=== PATIENT | male | born 1960 | race African-American/Black ===

== ENCOUNTER 2017-05-03 12:13 | Observation (INO) | payer OTHER ==
[~2017-05-03] VITALS: Ht 175.3 cm; Wt 89.2 kg
[2017-05-03] MEDS ORDERED: IPRATRPIUM/ALBUTEROL 0.5/2.5MG 3 ML NEBU. NEB ONE (12:30)
--- NOTE | 2017-05-03 12:37 | EKG ---
[facility] [address] [place] [address] Test Date: 2017-05-03 Test Time: 12:20:17 Pat Name: ROSA PIERCE Department: Room: Gender: M [employer]el [employer] Machine: : [id number] Requested By: DAHLIA ALCARAZ Order Number: [id number] Reading MD: Measurements Intervals [place] Rate: 67 P: 54 WY: 162 QRS: -12 QRSD: 84 T: 24 QT: 352 QTc: 374 Interpretive Statements SINUS RHYTHM LEFTWARD AXIS OTHERWISE NORMAL ECG RI6.01 Unconfirmed report No previous ECG available for comparison
[2017-05-03] MEDS ORDERED: ASPIRIN 325 MG TABLET PO ONE (12:45)
--- NOTE | 2017-05-03 12:47 | PHYS DOC ---
Past Medical History Past Medical History: Arthritis, Diabetes-Type II, Hypertension Past Surgical History: Other Additional Past Surgical Histo: X 3 HEARNIA REPAIR Alcohol Use: Rarely Drug Use: None Adult General Chief Complaint Chief Complaint: SHORTNESS OF BREATH HPI HPI 56-year-old male with a history of hypertension, diabetes, and family history of heart disease presenting to the emergency department today with shortness of breath. He reports this started about 3 hours ago which woke him up from sleep. He also reports having nausea and sweatiness of the skin. He reports having a family history of blood clots as well. He denies unilateral leg swelling hemoptysis or recent immobilization or surgery. Wells low risk. He did vomit a few times that she describes as nonbloody and nonbilious. Review of systems is negative for chest pain or any pain in his shoulders or neck. He denies a headache vision changes numbness weakness or tingling. He denies abdominal pain. All other review of systems is negative unless otherwise noted in history of present illness. ED course: 56-year-old male presenting to the emergency department today with shortness of breath. Pt denies any pain in the chest or shoulders or neck. Triage vital signs afebrile with normal heart rate. Patient is not tachypneic. Pertinent physical examination findings show normal lung sounds bilaterally. Patient is well-appearing with a normal heart rate. Abdomen is soft and nontender palpation. Otherwise no evidence of unilateral leg swelling. Palpable pulses in all extremities. EKG obtained and reviewed by myself which shows sinus rhythm with a regular rate. Mildly leftward axis. ST segments are congruent. Intervals within normal limits. Nonspecific T-wave flattening in lead 3. Chest x-ray obtained and reviewed by myself. Shows no obvious acute cardiopulmonary signs. Heart score 5. neg dimer and wells low risk. Given patient's heart score, patient was admitted for serial troponins and cardiac consultation. Review of Systems Review of Systems SEE ABOVE. Current Medications Current Medications Current Medications Medications (Trade) Dose Ordered Sig/Lyudmila Start Time Stop Time Status Last Admin Dose Admin Albuterol/ Ipratropium (Duoneb) 3 ml 1X ONCE 05/03/17 12:30 05/03/17 12:34 DC 05/03/17 12:44 3 ML Aspirin (Fahad Aspirin) 325 mg 1X ONCE 05/03/17 12:45 05/03/17 12:46 DC 05/03/17 13:20 325 MG Morphine Sulfate 2 mg PRN Q2HR PRN 05/03/17 14:00 05/04/17 13:59 Nitroglycerin (Nitrostat) 0.4 mg PRN Q5MIN PRN 05/03/17 14:00 05/04/17 13:59 Ondansetron HCl (Zofran) 4 mg PRN Q8HRS PRN 05/03/17 14:00 05/04/17 13:59 Allergies Allergies Allergies Coded Allergies Type Severity Reaction Last Updated Verified No Known Drug Allergies 05/03/17 No Physical Exam Physical Exam SEE ABOVE Constitutional: Well developed, well nourished, no acute distress, non-toxic appearance. HENT: Normocephalic, atraumatic, bilateral external ears normal, oropharynx moist, no oral exudates, nose normal. [] Eyes: PERRLA, EOMI, conjunctiva normal, no discharge. [] Neck: Normal range of motion, no tenderness, supple, no stridor. Cardiovascular:Heart rate regular rhythm, no murmur [] Lungs & Thorax: Bilateral breath sounds clear to auscultation Abdomen: Bowel sounds normal, soft, no tenderness, no masses, no pulsatile masses. [] Skin: Warm, dry, no erythema, no rash. Back: No tenderness, no CVA tenderness. Extremities: No tenderness, no cyanosis, no clubbing, ROM intact, no edema. [] Neurologic: Alert and oriented X 3, normal motor function, normal sensory function, no focal deficits noted. [] Psychologic: Affect normal, judgement normal, mood normal. [] Current Patient Data Vital Signs Vital Signs Date Time Temp Pulse Resp B/P (MAP) Pulse Ox O2 Delivery O2 Flow Rate FiO2 05/03/17 12:48 99 Room Air 05/03/17 12:26 97.7 63 18 183/97 (125) 97.7 Lab Values Laboratory Tests Test 05/03/17 12:22 05/03/17 12:40 Glucose (Fingerstick) 125 mg/dL (70-99) H White Blood Count 9.1 x10^3/uL (4.0-11.0) Red Blood Count 5.54 x10^6/uL (4.30-5.70) Hemoglobin 15.0 g/dL (13.0-17.5) Hematocrit 44.8 % (39.0-53.0) Mean Corpuscular Volume 81 fL (79-100) Mean Corpuscular Hemoglobin 27 pg (25-35) Mean Corpuscular Hemoglobin Concent 34 g/dL (31-37) Red Cell Distribution Width 16.0 % (11.5-14.5) H Platelet Count 234 x10^3/uL (140-400) Neutrophils (%) (Auto) 62 % (31-73) Lymphocytes (%) (Auto) 30 % (24-48) Monocytes (%) (Auto) 6 % (0-9) Eosinophils (%) (Auto) 1 % (0-3) Basophils (%) (Auto) 1 % (0-3) Neutrophils # (Auto) 5.6 x10^3uL (1.8-7.7) Lymphocytes # (Auto) 2.7 x10^3/uL (1.0-4.8) Monocytes # (Auto) 0.6 x10^3/uL (0.0-1.1) Eosinophils # (Auto) 0.1 x10^3/uL (0.0-0.7) Basophils # (Auto) 0.1 x10^3/uL (0.0-0.2) D-Dimer (Isa) 0.34 ug/mlFEU (0.00-0.50) Sodium Level 141 mmol/L (136-145) Potassium Level 5.3 mmol/L (3.5-5.1) H Chloride Level 103 mmol/L (98-107) Carbon Dioxide Level 32 mmol/L (21-32) Anion Gap 6 (6-14) Blood Urea Nitrogen 12 mg/dL (8-26) Creatinine 1.1 mg/dL (0.7-1.3) Estimated GFR (Cockcroft-Gault) 69.2 Glucose Level 133 mg/dL (70-99) H Calcium Level 9.2 mg/dL (8.5-10.1) Total Bilirubin 0.3 mg/dL (0.2-1.0) Direct Bilirubin < 0.1 mg/dL (0.0-0.2) Aspartate Amino Transferase (AST) 17 U/L (15-37) Alanine Aminotransferase (ALT) 26 U/L (16-63) Alkaline Phosphatase 68 U/L (46-116) Troponin I Quantitative < 0.017 ng/mL (0.000-0.055) UV-Bmd-B-Type Natriuretic Peptide 22 pg/mL (0-124) Total Protein 7.8 g/dL (6.4-8.2) Albumin 3.9 g/dL (3.4-5.0) Lipase 524 U/L (73-393) H Laboratory Tests 05/03/17 12:40 Laboratory Tests 05/03/17 12:40 EKG EKG [] Radiology/Procedures Radiology/Procedures [] Course & Med Decision Making Course & Med Decision Making Pertinent Labs and Imaging studies reviewed. (See chart for details) [] Dragon Disclaimer Dragon Disclaimer This electronic medical record was generated, in whole or in part, using a voice recognition dictation system. Departure Departure Impression: Primary Impression: Shortness of breath Disposition: ADMITTED INPATIENT Admitting Physician: Crystal Candelaria Condition: STABLE DAHLIA ALCARAZ MD May 03, 2017 12:47
[2017-05-03 12:52] LABS: BASO # 0.1 x10^3/uL (0.0-0.2); BASO % 1 % (0-3); EOS % 1 % (0-3); HEMATOCRIT 44.8 % (39.0-53.0); LYMPH # 2.7 x10^3/uL (1.0-4.8); LYMPH % 30 % (24-48); MEAN CORPUSCULAR HEMOGLOBIN 27 pg (25-35); MEAN CORPUSCULAR HGB CONC 34 g/dL (31-37); MEAN CORPUSCULAR VOLUME 81 fL (79-100); MONO % 6 % (0-9); NEUT % 62 % (31-73); PLATELET COUNT 234 x10^3/uL (140-400); RED BLOOD COUNT 5.54 x10^6/uL (4.30-5.70); WHITE BLOOD COUNT 9.1 x10^3/uL (4.0-11.0)
[2017-05-03 13:01] LABS: ANION GAP 6 (6-14); BLOOD UREA NITROGEN 12 mg/dL (8-26); CALCIUM 9.2 mg/dL (8.5-10.1); CARBON DIOXIDE 32 mmol/L (21-32); CHLORIDE 103 mmol/L (98-107); CREATININE 1.1 mg/dL (0.7-1.3); GFR 69.2; GLUCOSE 133 mg/dL (70-99); SODIUM 141 mmol/L (136-145)
[2017-05-03 13:07] LABS: ALBUMIN 3.9 g/dL (3.4-5.0); ALK PHOS 68 U/L (46-116); ALT (SGPT) 26 U/L (16-63); AST (SGOT) 17 U/L (15-37); DIRECT BILIRUBIN < 0.1 mg/dL (0.0-0.2); TOTAL BILIRUBIN 0.3 mg/dL (0.2-1.0); TOTAL PROTEIN 7.8 g/dL (6.4-8.2)
[2017-05-03 13:09] LABS: POTASSIUM 5.3 mmol/L (3.5-5.1)
--- NOTE | 2017-05-03 13:14 | RAD ---
AP portable chest radiograph 05/03/2017 Clinical History: Shortness of breath with chest tightness since this morning. An AP portable erect digital radiograph of the chest was obtained. No previous studies are available for comparison. The cardiac silhouette is borderline enlarged. The thoracic aorta is tortuous. Calcified left hilar and mediastinal lymph nodes are seen. No acute pulmonary infiltrate is noted. No pneumothorax or pleural effusion is seen. Degenerative changes are seen involving the thoracic spine. Impression: No acute abnormality is seen.
[2017-05-03] MEDS ORDERED: MORPHINE SULFATE 2 MG/ML DISP.SYRIN. IV PRN (14:00)
[2017-05-03] MEDS ORDERED: NITROGLYCERIN SUBLINGUAL 0.4 MG BOTTLE OF 25. SL PRN (14:00)
[2017-05-03] MEDS ORDERED: ONDANSETRON PF 4 MG/2 ML VIAL. IV PRN (14:00)
[2017-05-03 14:50] VITALS: BP 138/81
[2017-05-03] MEDS ORDERED: TRAM50TA PO (15:30)
[2017-05-03] MEDS ORDERED: IBUP1TAB12 PO (15:30)
[2017-05-03] MEDS ORDERED: MELO7.5T29 PO (15:30)
[2017-05-03] MEDS ORDERED: LOSA50TA6 PO (15:30)
[2017-05-03] MEDS ORDERED: METF500T4 PO (15:30)
[2017-05-03] MEDS ORDERED: AMLO5TAB2 PO (15:30)
[2017-05-03] MEDS ORDERED: IBUP-1007 PO (15:30)
--- NOTE | 2017-05-03 15:59 | PDOC1 ---
History and Physical Date of Admission Date of Admission DATE: 05/03/17 TIME: 15:47 Source Source: Chart review, Patient History of Present Illness History of Present Illness MR. Poole is a 56-year-old male with admit with new and acute shortness of breath. He reports this started this AM woke him up from sleep. He reports sweats and chills, nausea and he vomited X3 no change in stool, no diarrhea. No fever, but + sweats and dyspnea. He feels improved now, and never had any pain. 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 Ramires, recent physical and labs, OK he has chronic right shoulder pain, has had 2 injections by physiatry for bursitis right shoulder, and takes Nsaids and tramadol Past Medical History Past Medical History a history of hypertension, diabetes, Family History Family History He reports having a family history of blood clots Social History Smoke: <1 pack per day ALCOHOL: rare Drugs: None Current Problem List Problem List Problems Medical Problems: (1) Shortness of breath Status: Acute Problems: Current Medications Current Medications Current Medications Albuterol/ Ipratropium (Duoneb) 3 ml 1X ONCE NEB Last administered on 12:44; Start 05/03/17 at 12:30; Stop 05/03/17 at 12:34; Status DC Aspirin (Fahad Aspirin) 325 mg 1X ONCE PO Last administered on 05/03/17t 13: 20; Start 05/03/17 at 12:45; Stop 05/03/17 at 12:46; Status DC Ondansetron HCl (Zofran) 4 mg PRN Q8HRS PRN IV NAUSEA/VOMITING; Start at 14:00; Stop 05/04/17 at 13:59 Morphine Sulfate 2 mg PRN Q2HR PRN IV PAIN; Start 05/03/17 at 14:00; Stop at 13:59 Nitroglycerin (Nitrostat) 0.4 mg PRN Q5MIN PRN SL CHEST PAIN; Start 05/03/17 at 14:00; Stop 05/04/17 at 13:59 Active Scripts Active Reported Meloxicam 7.5 Mg Tablet 1 Tab PO BID Advil Pm Caplet (Ibuprofen/Diphenhydramine Cit) 1 Each Tablet 1 Each PO HS Ibuprofen 600 Mg Tablet 600 Mg PO QID Tramadol Hcl 50 Mg Tablet 1-2 Tab PO QID Metformin Hcl 500 Mg Tablet 500 Mg PO BIDWMEALS Amlodipine Besylate 5 Mg Tablet 5 Mg PO DAILY Losartan Potassium 50 Mg Tablet 50 Mg PO DAILY Allergies Allergies: Coded Allergies: No Known Drug Allergies (Unverified , 05/03/17) ROS Review of System Review of systems is negative for chest pain or any pain in his shoulders or neck. He denies a headache vision changes numbness weakness or tingling. He denies abdominal pain. All other review of systems is negative unless otherwise noted in history of present illness. Physical Exam General: Alert, Cooperative HEENT: Atraumatic, PERRLA Abdomen: Normal bowel sounds, Soft Extremities: No clubbing, No edema, Normal pulses Skin: No rashes, No breakdown Neuro: Normal speech, Normal tone, Cranial nerves 3-12 NL Psych/Mental Status: Mood NL Vitals Vitals Vital Signs Date Time Temp Pulse Resp B/P (MAP) Pulse Ox O2 Delivery O2 Flow Rate FiO2 05/03/17 14:50 98.2 65 18 138/81 (100) 100 Room Air 98.2 Labs Labs Laboratory Tests Test 05/03/17 12:22 05/03/17 12:40 Glucose (Fingerstick) 125 mg/dL (70-99) White Blood Count 9.1 x10^3/uL (4.0-11.0) Red Blood Count 5.54 x10^6/uL (4.30-5.70) Hemoglobin 15.0 g/dL (13.0-17.5) Hematocrit 44.8 % (39.0-53.0) Mean Corpuscular Volume 81 fL (79-100) Mean Corpuscular Hemoglobin 27 pg (25-35) Mean Corpuscular Hemoglobin Concent 34 g/dL (31-37) Red Cell Distribution Width 16.0 % (11.5-14.5) Platelet Count 234 x10^3/uL (140-400) Neutrophils (%) (Auto) 62 % (31-73) Lymphocytes (%) (Auto) 30 % (24-48) Monocytes (%) (Auto) 6 % (0-9) Eosinophils (%) (Auto) 1 % (0-3) Basophils (%) (Auto) 1 % (0-3) Neutrophils # (Auto) 5.6 x10^3uL (1.8-7.7) Lymphocytes # (Auto) 2.7 x10^3/uL (1.0-4.8) Monocytes # (Auto) 0.6 x10^3/uL (0.0-1.1) Eosinophils # (Auto) 0.1 x10^3/uL (0.0-0.7) Basophils # (Auto) 0.1 x10^3/uL (0.0-0.2) D-Dimer (Isa) 0.34 ug/mlFEU (0.00-0.50) Sodium Level 141 mmol/L (136-145) Potassium Level 5.3 mmol/L (3.5-5.1) Chloride Level 103 mmol/L (98-107) Carbon Dioxide Level 32 mmol/L (21-32) Anion Gap 6 (6-14) Blood Urea Nitrogen 12 mg/dL (8-26) Creatinine 1.1 mg/dL (0.7-1.3) Estimated GFR (Cockcroft-Gault) 69.2 Glucose Level 133 mg/dL (70-99) Calcium Level 9.2 mg/dL (8.5-10.1) Total Bilirubin 0.3 mg/dL (0.2-1.0) Direct Bilirubin < 0.1 mg/dL (0.0-0.2) Aspartate Amino Transf (AST/SGOT) 17 U/L (15-37) Alanine Aminotransferase (ALT/SGPT) 26 U/L (16-63) Alkaline Phosphatase 68 U/L (46-116) Troponin I Quantitative < 0.017 ng/mL (0.000-0.055) OQ-Nah-S-Type Natriuretic Peptide 22 pg/mL (0-124) Total Protein 7.8 g/dL (6.4-8.2) Albumin 3.9 g/dL (3.4-5.0) Lipase 524 U/L (73-393) Laboratory Tests Test 05/03/17 12:22 05/03/17 12:40 Glucose (Fingerstick) 125 mg/dL (70-99) White Blood Count 9.1 x10^3/uL (4.0-11.0) Red Blood Count 5.54 x10^6/uL (4.30-5.70) Hemoglobin 15.0 g/dL (13.0-17.5) Hematocrit 44.8 % (39.0-53.0) Mean Corpuscular Volume 81 fL (79-100) Mean Corpuscular Hemoglobin 27 pg (25-35) Mean Corpuscular Hemoglobin Concent 34 g/dL (31-37) Red Cell Distribution Width 16.0 % (11.5-14.5) Platelet Count 234 x10^3/uL (140-400) Neutrophils (%) (Auto) 62 % (31-73) Lymphocytes (%) (Auto) 30 % (24-48) Monocytes (%) (Auto) 6 % (0-9) Eosinophils (%) (Auto) 1 % (0-3) Basophils (%) (Auto) 1 % (0-3) Neutrophils # (Auto) 5.6 x10^3uL (1.8-7.7) Lymphocytes # (Auto) 2.7 x10^3/uL (1.0-4.8) Monocytes # (Auto) 0.6 x10^3/uL (0.0-1.1) Eosinophils # (Auto) 0.1 x10^3/uL (0.0-0.7) Basophils # (Auto) 0.1 x10^3/uL (0.0-0.2) D-Dimer (Isa) 0.34 ug/mlFEU (0.00-0.50) Sodium Level 141 mmol/L (136-145) Potassium Level 5.3 mmol/L (3.5-5.1) Chloride Level 103 mmol/L (98-107) Carbon Dioxide Level 32 mmol/L (21-32) Anion Gap 6 (6-14) Blood Urea Nitrogen 12 mg/dL (8-26) Creatinine 1.1 mg/dL (0.7-1.3) Estimated GFR (Cockcroft-Gault) 69.2 Glucose Level 133 mg/dL (70-99) Calcium Level 9.2 mg/dL (8.5-10.1) Total Bilirubin 0.3 mg/dL (0.2-1.0) Direct Bilirubin < 0.1 mg/dL (0.0-0.2) Aspartate Amino Transf (AST/SGOT) 17 U/L (15-37) Alanine Aminotransferase (ALT/SGPT) 26 U/L (16-63) Alkaline Phosphatase 68 U/L (46-116) Troponin I Quantitative < 0.017 ng/mL (0.000-0.055) QW-Ghk-Y-Type Natriuretic Peptide 22 pg/mL (0-124) Total Protein 7.8 g/dL (6.4-8.2) Albumin 3.9 g/dL (3.4-5.0) Lipase 524 U/L (73-393) VTE Prophylaxis Ordered VTE Prophylaxis Devices: No VTE Pharmacological Prophylaxi: Yes Assessment/Plan Assessment/Plan lipase elevated, acute pancreatitis, nausea with vomiting, acute chest symptoms without pain, angina equivalent per ER, r/o ACS started acute dyspnea and shortness of breath w/o asthma Left axis on EKG, check echo, htn, dm2 tobaccoism, cessation recommended OMI BRIDGES MD May 03, 2017 15:59
[2017-05-03] MEDS: traMADol 50 MG TABLET PO SCH ×2 (16:41→22:21)
[2017-05-03 19:25] VITALS: BP 143/85
[2017-05-03] MEDS ORDERED: diphenhydrAMINE HCL 25 MG CAPSULE PO PRN (20:30)
[2017-05-03] MEDS ORDERED: DEXTROSE 50% 25 GM / 50ML DISP.SYRIN. IV PRN (20:30)
[2017-05-03] MEDS ORDERED: ZOLPIDEM 5 MG TABLET. PO PRN (20:30)
[2017-05-03 23:00] VITALS: BP 118/92
[2017-05-04 03:00] VITALS: BP 128/89
[2017-05-04 05:22] LABS: BASO % 1 % (0-3); EOS % 1 % (0-3); HEMATOCRIT 42.2 % (39.0-53.0); HEMOGLOBIN 13.9 g/dL (13.0-17.5); LYMPH # 2.8 x10^3/uL (1.0-4.8); LYMPH % 37 % (24-48); MEAN CORPUSCULAR HEMOGLOBIN 27 pg (25-35); MEAN CORPUSCULAR HGB CONC 33 g/dL (31-37); MEAN CORPUSCULAR VOLUME 81 fL (79-100); MONO % 7 % (0-9); NEUT % 55 % (31-73); PLATELET COUNT 219 x10^3/uL (140-400); RED BLOOD COUNT 5.22 x10^6/uL (4.30-5.70); RED CELL DISTRIBUTION WIDTH 16.1 % (11.5-14.5); WHITE BLOOD COUNT 7.5 x10^3/uL (4.0-11.0)
[2017-05-04 06:16] LABS: ALBUMIN 3.3 g/dL (3.4-5.0); ALBUMIN/GLOBULIN RATIO 0.8 (1.0-1.7); CALCIUM 8.4 mg/dL (8.5-10.1); GFR 93.5; TOTAL BILIRUBIN 0.5 mg/dL (0.2-1.0); TOTAL PROTEIN 7.3 g/dL (6.4-8.2)
[2017-05-04 06:20] LABS: CHOLESTEROL/HDL RATIO 4.4
[2017-05-04 07:00] VITALS: BP 141/88
[2017-05-04] MEDS: INSULIN ASPART 300 UNITS/3 ML INSULN.PEN SQ SCH ×2 (08:00→12:00)
[2017-05-04] MEDS: traMADol 50 MG TABLET PO SCH ×2 (08:19→15:38)
[2017-05-04] MEDS ORDERED: amLODIPine BESYLATE 5 MG TABLET PO SCH (09:00)
[2017-05-04] MEDS ORDERED: LOSARTAN POTASSIUM 50 MG TABLET. PO SCH (09:00)
--- NOTE | 2017-05-04 10:01 | PDOC2 ---
DENIA DAVENPORT PIPE CAULKER 05/04/17 1001: CARDIAC CONSULT DATE OF CONSULT Date of Consult DATE: 05/04/17 TIME: 09:44 REASON FOR CONSULT Reason for Consult: CP MARYBETH REFERRING PHYSICIAN Referring Physician: Nii SOURCE Source: Chart review, Patient HISTORY OF PRESENT ILLNESS HISTORY OF PRESENT ILLNESS This is a pleasant 56 yo male admitted for complains of chest pain. Reports exertional SOA and chest pressure and nausea. This actually woke him up from sleep. He is positive for high dose chronic NSAID use and significant for shoulder bursitis. Denies any prior CAD, VTE, falls or any recent injury. PAST MEDICAL HISTORY Cardiovascular: HTN Pulmonary: No pertinent hx CENTRAL NERVOUS SYSTEM: Other (No pertinent history) GI: No pertinent hx Heme/Onc: No pertinent hx Hepatobiliary: No pertinent hx Psych: No pertinent hx Musculoskeletal: Osteoarthritis, Other (shoulder bursitis) Rheumatologic: No pertinent hx Infectious disease: No pertinent hx ENT: No pertinent hx Renal/: No pertinent hx Endocrine: Diabetes (pre) Dermatology: No pertinent hx PAST SURGICAL HISTORY Past Surgical History: Hernia Repair (x1 left inguinal and x2 right inguinal with mesh) FAMILY HISTORY Family History: Coronary Artery Disease (brother) SOCIAL HISTORY Smoke: <1 pack per day ALCOHOL: none Drugs: None Lives: with Family CURRENT MEDICATIONS CURRENT MEDICATIONS Current Medications Medications (Trade) Dose Ordered Sig/Lyudmila Route PRN Reason Start Time Stop Time Status Last Admin Dose Admin Albuterol/ Ipratropium (Duoneb) 3 ml 1X ONCE NEB 05/03/17 12:30 05/03/17 12:34 DC 05/03/17 12:44 Aspirin (Fahad Aspirin) 325 mg 1X ONCE PO 05/03/17 12:45 05/03/17 12:46 DC 05/03/17 13:20 Tramadol HCl (Ultram) 50 mg QID PO 05/03/17 17:00 05/04/17 08:19 Diphenhydramine HCl (Benadryl) 25 mg PRN Q6HRS PRN PO ITCHING 05/03/17 20:30 05/03/17 22:21 ALLERGIES ALLERGIES: Coded Allergies: No Known Drug Allergies (Unverified , 05/03/17) ROS Review of System 14 point ROS evaluated with pertinent positives noted per HPI PHYSICAL EXAM General: Alert, Oriented X3, Cooperative, No acute distress HEENT: Atraumatic, Mucous membr. moist/pink Lungs: Clear to auscultation, Normal air movement Heart: Regular rate (SR), Normal S1, Normal S2, No murmurs Abdomen: Soft, No tenderness Extremities: No cyanosis, No edema Skin: No breakdown, No significant lesion Neuro: Normal speech, Sensation intact Psych/Mental Status: Mental status NL, Mood NL MUSCULOSKELETAL: Osteoarthritic changes both hands VITALS VITALS Vital Signs Date Time Temp Pulse Resp B/P (MAP) Pulse Ox O2 Delivery O2 Flow Rate FiO2 05/04/17 08:25 Room Air 05/04/17 08:19 99 05/04/17 07:00 98.1 64 18 141/88 (105) 98.1 LABS Lab: Laboratory Tests Test 05/03/17 12:22 05/03/17 12:40 05/03/17 20:20 05/03/17 20:39 Glucose (Fingerstick) 125 mg/dL (70-99) 152 mg/dL (70-99) White Blood Count 9.1 x10^3/uL (4.0-11.0) Red Blood Count 5.54 x10^6/uL (4.30-5.70) Hemoglobin 15.0 g/dL (13.0-17.5) Hematocrit 44.8 % (39.0-53.0) Mean Corpuscular Volume 81 fL (79-100) Mean Corpuscular Hemoglobin 27 pg (25-35) Mean Corpuscular Hemoglobin Concent 34 g/dL (31-37) Red Cell Distribution Width 16.0 % (11.5-14.5) Platelet Count 234 x10^3/uL (140-400) Neutrophils (%) (Auto) 62 % (31-73) Lymphocytes (%) (Auto) 30 % (24-48) Monocytes (%) (Auto) 6 % (0-9) Eosinophils (%) (Auto) 1 % (0-3) Basophils (%) (Auto) 1 % (0-3) Neutrophils # (Auto) 5.6 x10^3uL (1.8-7.7) Lymphocytes # (Auto) 2.7 x10^3/uL (1.0-4.8) Monocytes # (Auto) 0.6 x10^3/uL (0.0-1.1) Eosinophils # (Auto) 0.1 x10^3/uL (0.0-0.7) Basophils # (Auto) 0.1 x10^3/uL (0.0-0.2) D-Dimer (Isa) 0.34 ug/mlFEU (0.00-0.50) Sodium Level 141 mmol/L (136-145) Potassium Level 5.3 mmol/L (3.5-5.1) Chloride Level 103 mmol/L (98-107) Carbon Dioxide Level 32 mmol/L (21-32) Anion Gap 6 (6-14) Blood Urea Nitrogen 12 mg/dL (8-26) Creatinine 1.1 mg/dL (0.7-1.3) Estimated GFR (Cockcroft-Gault) 69.2 Glucose Level 133 mg/dL (70-99) Calcium Level 9.2 mg/dL (8.5-10.1) Total Bilirubin 0.3 mg/dL (0.2-1.0) Direct Bilirubin < 0.1 mg/dL (0.0-0.2) Aspartate Amino Transf (AST/SGOT) 17 U/L (15-37) Alanine Aminotransferase (ALT/SGPT) 26 U/L (16-63) Alkaline Phosphatase 68 U/L (46-116) Troponin I Quantitative < 0.017 ng/mL (0.000-0.055) < 0.017 ng/mL (0.000-0.055) TW-Wcs-W-Type Natriuretic Peptide 22 pg/mL (0-124) Total Protein 7.8 g/dL (6.4-8.2) Albumin 3.9 g/dL (3.4-5.0) Lipase 524 U/L (73-393) Test 05/04/17 05:00 05/04/17 07:58 White Blood Count 7.5 x10^3/uL (4.0-11.0) Red Blood Count 5.22 x10^6/uL (4.30-5.70) Hemoglobin 13.9 g/dL (13.0-17.5) Hematocrit 42.2 % (39.0-53.0) Mean Corpuscular Volume 81 fL (79-100) Mean Corpuscular Hemoglobin 27 pg (25-35) Mean Corpuscular Hemoglobin Concent 33 g/dL (31-37) Red Cell Distribution Width 16.1 % (11.5-14.5) Platelet Count 219 x10^3/uL (140-400) Neutrophils (%) (Auto) 55 % (31-73) Lymphocytes (%) (Auto) 37 % (24-48) Monocytes (%) (Auto) 7 % (0-9) Eosinophils (%) (Auto) 1 % (0-3) Basophils (%) (Auto) 1 % (0-3) Neutrophils # (Auto) 4.1 x10^3uL (1.8-7.7) Lymphocytes # (Auto) 2.8 x10^3/uL (1.0-4.8) Monocytes # (Auto) 0.5 x10^3/uL (0.0-1.1) Eosinophils # (Auto) 0.1 x10^3/uL (0.0-0.7) Basophils # (Auto) 0.0 x10^3/uL (0.0-0.2) Sodium Level 138 mmol/L (136-145) Potassium Level 4.0 mmol/L (3.5-5.1) Chloride Level 102 mmol/L (98-107) Carbon Dioxide Level 27 mmol/L (21-32) Anion Gap 9 (6-14) Blood Urea Nitrogen 10 mg/dL (8-26) Creatinine 1.0 mg/dL (0.7-1.3) Estimated GFR (Cockcroft-Gault) 93.5 BUN/Creatinine Ratio 10 (6-20) Glucose Level 111 mg/dL (70-99) Calcium Level 8.4 mg/dL (8.5-10.1) Total Bilirubin 0.5 mg/dL (0.2-1.0) Aspartate Amino Transf (AST/SGOT) 11 U/L (15-37) Alanine Aminotransferase (ALT/SGPT) 22 U/L (16-63) Alkaline Phosphatase 58 U/L (46-116) Troponin I Quantitative < 0.017 ng/mL (0.000-0.055) Total Protein 7.3 g/dL (6.4-8.2) Albumin 3.3 g/dL (3.4-5.0) Albumin/Globulin Ratio 0.8 (1.0-1.7) Triglycerides Level 110 mg/dL (0-150) Cholesterol Level 198 mg/dL (0-200) LDL Cholesterol, Calculated 131 mg/dL (0-100) VLDL Cholesterol, Calculated 22 mg/dL (0-40) Non-HDL Cholesterol Calculated 153 mg/dL (0-129) HDL Cholesterol 45 mg/dL (40-60) Cholesterol/HDL Ratio 4.4 Glucose (Fingerstick) 123 mg/dL (70-99) ASSESSMENT/PLAN ASSESSMENT/PLAN 1. CP: troponin series normal, EKG no acute changes 2. HTN: controlled 3. HLP: unmedicated LDL 131. 4. Right shoulder bursitis: cortisone shot to left shoulder a week ago and right shoulder 2 weeks ago 5. Elevated lipase 6. Chronic NSAID use: about 2400 mg of ibuprofen a day and does not use any H2 latoya or PPI 7. Hyperglycemia: suspecting new DM2. PreDM per pt 8. Tobaccoism 9. Family hx of premature CAD Recommendations 1. Treadmill MPI today 2. PPI. 3. Smoking cessation Problems: MEERA MCDANIEL MD 05/04/17 2000: CARDIAC CONSULT ALLERGIES ALLERGIES: Coded Allergies: No Known Drug Allergies (Unverified , 05/03/17) ASSESSMENT/PLAN ASSESSMENT/PLAN Patient seen and examined. Agree with VIROLOGIST's assessment and plan. CP with atypical features. W[place] ruled out. Treadmill nuclear stress test did not show any ischemia. OK for DC from cardiac standpoint. Thank you for your consultation. Problems: DENIA DAVENPORT APRN May 04, 2017 10:01 MEERA MCDANIEL MD May 04, 2017 20:00
[2017-05-04 11:00] VITALS: BP 122/81
[2017-05-04] MEDS ORDERED: PANT40TA5 PO (11:44)
[2017-05-04 15:00] VITALS: BP 121/79
--- NOTE | 2017-05-04 15:18 | RAD ---
APPROVED REPORT Test Type: Exercise Stress Nurse/Tech: niko pennington Test Indications: dyspnea Cardiac History: HTN, SEE EHR Medications: SEE EHR Medical History: DIABETES, SEE EHR Resting ECG: SR Resting Heart Rate: 74 bpm Resting Blood Pressure: 126/76mmHg Pretest Chest Pain: Typical anginaNo chest pain Nurse/Tech Notes LUNG SOUNDS CLEAR, S1S2 WNL. Consent: The procedure was explained to the patient in lay terms. Informed consent was witnessed. Gilmer eout was entered into [employer]. History and Stress Test performed by RT Keven (R) (N) Stress Symptoms SOA. LEG FATIGUE. PT WAS ABLE TO WALK AT A BRISK WALK AND STILL SPEAK. POST EXERCISE Reason for Termination: Reached target heart rate Target HR: 139 Max HR: 155 bpm 111% of Maximum Predicted HR: 139 bpm Exercise duration: 8:31 min:sec, Stage Exercise capacity: 10METs Max Blood Pressure: 152/84mmHg Blood Pressure response to exercise: Normal blood pressure response during stress. Heart Rate response to exercise: WNL Chest Pain: No. Arrhythmia: No. ST Change: No. INTERPRETATION Stress EKG Conclusion: Baseline EKG showed sinus rhythm. No ischemic changes at peak stress. No arr hythmias. Imaging Protocol IMAGE PROTOCOL: Rest Tc-99m/stress Tc-99m 1 day Rest: Stress: Viability: Radiopharm.Tc99m [id number] Sestamibi Bfcl48gVy 32.3mCi Duration 17min. 12min. Img Date 05/04/2017 05/04/2017 Inj-Img Smsj31evy. 60min. Post-Injection Exercise: 1 minute Rest Admin Site:IV - Left AntecubitalAdministrator:RT Keven (R)(N) Stress Admin Site: IV - Left AntecubitalAdministrator: RT Keven (R)(N) STRESS DATA End Diast. Vol.76.0mlAv. Heart Rate84.0bpm End Syst. Vol.18.0mlCO Index BSA0.0L/min Myocardial Dral483.0gEject. Ktquoyaq45.0% Stress Rates Pk. Fill Rate3.07EDV/secLVtime Pk. Fill 220.25msec Pk. Empty Rate5.70ESV/secLVtime Pk. Eimcv755.75msec 1/3 Pk. Fill1.30EDV/sec Stress Scores Regional WT2.00Summed WT6.00 Regional WM0.00Summed WM0.00 Study quality was good. Left Ventricular size was Normal at Rest and Stress. Lung uptake was Normal. Left Ventricular ejection fraction is 76%. The rest and stress images show normal perfusion, normal contraction and thickening. LV Perf. Quant 17 Seg. SSS0.00 17 Seg. SRS1.00 17 Seg. SDS0.00 Stress Defect Extent (% LAD)0.00Rest Defect Extent (% LAD)0.00Rev. Defect Extent (% LAD)0.00 Stress Defect Extent (% LCX) 0.00Rest Defect Extent (% LCX)0.00Rev. Defect Extent (% LCX)0.00 Stress Defect Extent (% RCA)0.00Rest Defect Extent (% RCA)0.00Rev. Defect Extent (% RCA)0.00 Stress Defect Extent (% JOSE)0.00Rest Defect Extent (% JOSE)0.00Rev. Defect Extent (% JOSE)0.00 Conclusion 1. Treadmill exercise cardioisotope stress test did not show any evidence of ischemia or infarct. 2. Normal left ventricular systolic function with ejection fraction calculated at 76%. 3. Low risk for cardiac events.
[2017-05-04 15:39] VITALS: BP 122/81
--- NOTE | 2017-05-04 17:04 | DS ---
DATE OF DISCHARGE: 05/04/2017 CHIEF COMPLAINT: Chest pain, nausea, vomiting. HOSPITAL COURSE: The patient is a 56-year-old gentleman who presented to the Emergency Room with acute shortness of breath, sweats, fever, chills, nausea and vomiting. He had been admitted for rule out ACS. He had been admitted to the unit for serial enzymes and EKGs, which were normal. He underwent myocardial imaging stress test under Cardiology's guidance. Test was negative. On further questioning, the patient relates that he had been taking increased amounts of NSAIDS for severe shoulder pain bilaterally. Shoulders got injected. Right shoulder is still bothering him some. He is not on any stomach protectant. Pain therefore was attributed to GERD, and he was started on PPI. PHYSICAL EXAM: VS: stable GEN: A&O, NAD CV: RRR PULM: clear ABD: BS+, SNT EXTR: no edema DISCHARGE DIAGNOSIS: Gastroesophageal reflux disease. DISCHARGE DISPOSITION: To home. DISCHARGE CONDITION: Improved. DISCHARGE MEDICATIONS: Please refer to MAR. DISCHARGE INSTRUCTIONS: The patient will follow up with his PCP in 1-2 weeks. RENE NUNEZ MD DR: UR/nts JOB#: [id number] / [id number] HUNTER Coy MD MTDD
--- NOTE | 2017-05-04 19:30 | CARD ---
APPROVED REPORT EXAM: Two-dimensional and M-mode echocardiogram with Doppler and color Doppler. Other Information Quality : Good INDICATION Dyspnea 2D DIMENSIONS RVDd3.2 (2.9-3.5cm)Left Atrium(2D)3.7 (1.6-4.0cm) IVSd1.1 (0.7-1.1cm)Aortic Root(2D)2.6 (2.0-3.7cm) LVDd4.4 (3.9-5.9cm)LVOT Diameter2.1 (1.8-2.4cm) PWd1.1 (0.7-1.1cm)LVDs2.1 (2.5-4.0cm) FS (%) 30.0 %SV73.5 ml LVEF(%)60.0 (>50%) Aortic Valve AoV Peak Benjy.171.1cm/sAoV VTI23.8cm AO Peak GR.11.7mmHgLVOT Peak Benjy.121.0cm/s LVOT VTI 21.47cmAO Mean GR.5mmHg ALEKSANDRA (VMAX)2.70kb0ZTM (VTI)3.18cm2 Mitral Valve MV E Ayciezhg01.4cm/sMV DECEL [id number] MV A Pbcrnuzn75.0cm/sMV [id number] E/A Ratio0.8MVA (PHT)3.25cm2 TDI E/Lateral E'6.4E/Medial E'12.6 Tricuspid Valve TR P. Wyexomxn164ue/sRAP [id number] TR Peak Gr.36rlBsZZNP39orWc Pulmonary Vein S1 Qmnwstvj04.6cm/sD2 Ppasezza14.9cm/s LEFT VENTRICLE The left ventricle is normal size. There is normal left ventricular wall thickness. The left ventricu lar systolic function is normal and the ejection fraction is within normal range. The Ejection Fracti on is 55-60%. There is normal LV segmental wall motion. Transmitral Doppler flow pattern is Grade I-a bnormal relaxation pattern. RIGHT VENTRICLE The right ventricle is normal size. The right ventricular systolic function is normal. ATRIA The left atrium size is normal. The right atrium size is normal. The interatrial septum is intact wit h no evidence for an atrial septal defect or patent foramen ovale as noted on 2-D or Doppler imaging. AORTIC VALVE The aortic valve is normal in structure and function. Doppler and Color Flow revealed trace aortic re gurgitation. There is no significant aortic valvular stenosis. MITRAL VALVE The mitral valve is normal in structure and function. There is no evidence of mitral valve prolapse. There is no mitral valve stenosis. Doppler and Color-flow revealed trace mitral regurgitation. TRICUSPID VALVE The tricuspid valve is normal in structure and function. Doppler and Color Flow revealed trace tricus pid regurgitation. The PA pressure was estimated at 30 mmHg. There is no tricuspid valve stenosis. PULMONIC VALVE The pulmonary valve is normal in structure and function. Doppler and Color Flow revealed trace pulmon ic valvular regurgitation. There is no pulmonic valvular stenosis. GREAT VESSELS The aortic root is normal in size. The ascending aorta is normal in size. The IVC is normal in size a nd collapses >50% with inspiration. PERICARDIAL EFFUSION There is no evidence of significant pericardial effusion. Critical Notification Critical Value: No <Conclusion> The left ventricle is normal size. The left ventricular systolic function is normal and the ejection fraction is within normal range. The Ejection Fraction is 55-60%. There is no significant aortic valvular stenosis. Doppler and Color Flow revealed trace aortic regurgitation. Doppler and Color-flow revealed trace mitral regurgitation. Doppler and Color Flow revealed trace tricuspid regurgitation. The PA pressure was estimated at 30 mmHg.
[2017-05-05] MEDS ORDERED: PANTOPRAZOLE 40 MG TABLET.DR. PO SCH (07:30)
== END 2017-05-04 17:59 | disposition home or self-care (01) ==
LOC: ER 12:13 → 2 NORTH 14:11
PROVIDERS: ADMIT Internal Medicine; ATTEND Internal Medicine
DX: K21.9 Gastro-esophageal reflux disease without esophagitis (principal); G89.29 Other chronic pain; I10 Essential (primary) hypertension; E11.9 Type 2 diabetes mellitus without complications; F17.210 Nicotine dependence, cigarettes, uncomplicated; K85.90 Acute pancreatitis without necrosis or infection, unspecified; E78.5 Hyperlipidemia, unspecified; M19.90 Unspecified osteoarthritis, unspecified site; M75.51 Bursitis of right shoulder; Z79.1 Long term (current) use of non-steroidal anti-inflammatories (NSAID); Z82.49 Family history of ischemic heart disease and other diseases of the circulatory system
CPT/HCPCS: 36415; 71010; 78452; 80048; 80053; 80061; 80076; 82962; 83036; 83690; 83880; 84484; 85025; 85379; 93005; 93017; 93306; 94250; 94640; 99285; A9500; G0378; J1815; J7620; Q0163; 96374; 96376; G0379

== ENCOUNTER 2018-01-23 20:20 | Emergency (ER) | payer OTHER ==
[2018-01-23 21:08] LABS: ADD MAN DIFF? NO
[2018-01-23 21:10] LABS: BASO # 0.1 x10^3/uL (0.0-0.2); BASO % 1 % (0-3); EOS # 0.1 x10^3/uL (0.0-0.7); EOS % 1 % (0-3); HEMATOCRIT 44.2 % (39.0-53.0); HEMOGLOBIN 15.1 g/dL (13.0-17.5); LYMPH # 2.5 x10^3/uL (1.0-4.8); LYMPH % 22 % (24-48); MEAN CORPUSCULAR HEMOGLOBIN 27 pg (25-35); MEAN CORPUSCULAR HGB CONC 34 g/dL (31-37); MEAN CORPUSCULAR VOLUME 79 fL (79-100); MONO # 0.6 x10^3/uL (0.0-1.1); MONO % 5 % (0-9); NEUT # 8.1 x10^3uL (1.8-7.7); NEUT % 71 % (31-73); PLATELET COUNT 268 x10^3/uL (140-400); RED BLOOD COUNT 5.61 x10^6/uL (4.30-5.70); RED CELL DISTRIBUTION WIDTH 14.5 % (11.5-14.5); WHITE BLOOD COUNT 11.4 x10^3/uL (4.0-11.0)
[2018-01-23 21:11] LABS: BILIRUBIN,URINE NEGATIVE (NEG); CLARITY,URINE CLEAR; COLOR,URINE YELLOW; GLUCOSE,URINE 100 mg/dL (NEG); NITRITE,URINE NEGATIVE (NEG); PROTEIN,URINE NEGATIVE (NEG-TRACE); UROBILINOGEN,URINE 0.2 mg/dL (0.2 mg/dL)
[2018-01-23 21:19] LABS: RBC,URINE RARE /HPF (0-2); SQUAMOUS EPITHELIAL CELL,UR OCC /LPF; WBC,URINE OCC /HPF (0-4)
[2018-01-23 21:20] LABS: BACTERIA,URINE 0 /HPF (0-FEW)
[2018-01-23 21:21] LABS: ANION GAP 15 (6-14); BLOOD UREA NITROGEN 9 mg/dL (8-26); BUN/CREATININE RATIO 6 (6-20); CALCIUM 9.2 mg/dL (8.5-10.1); CARBON DIOXIDE 24 mmol/L (21-32); CHLORIDE 100 mmol/L (98-107); CREATININE 1.5 mg/dL (0.7-1.3); GFR 58.4; GLUCOSE 202 mg/dL (70-99); POTASSIUM 3.7 mmol/L (3.5-5.1); SODIUM 139 mmol/L (136-145)
[2018-01-23] MEDS: ONDANSETRON PF 4 MG/2 ML VIAL. IV (21:26)
[2018-01-23] MEDS: IV NORMAL SALINE 1000ML BAG 1,000 ML IV (21:26)
[2018-01-23] MEDS: fentaNYL PF VIAL 100 MCG/2 ML VIAL IV (21:26)
[2018-01-23 21:27] LABS: ALBUMIN 4.3 g/dL (3.4-5.0); ALBUMIN/GLOBULIN RATIO 1.3 (1.0-1.7); ALK PHOS 68 U/L (46-116); ALT (SGPT) 15 U/L (16-63); AST (SGOT) 13 U/L (15-37); LIPASE 273 U/L (73-393); TOTAL BILIRUBIN 0.4 mg/dL (0.2-1.0); TOTAL PROTEIN 7.6 g/dL (6.4-8.2)
[2018-01-23 21:29] LABS: TROPONINI < 0.017 ng/mL (0.000-0.055)
[2018-01-23] MEDS: METOCLOPRAMIDE HCL 10 MG/2 ML VIAL. IV (22:41)
[2018-01-23] MEDS: diphenhydrAMINE 50 MG/ML VIAL IM (22:41)
== END 2018-01-24 00:10 | disposition home or self-care (01) ==
LOC: ER 01-24 00:10
DX: K52.9 Noninfective gastroenteritis and colitis, unspecified (principal); E11.9 Type 2 diabetes mellitus without complications; I10 Essential (primary) hypertension
CPT/HCPCS: 36415; 80053; 81001; 83690; 84484; 85025; 93005; 96361; 96372; 96374; 96375; 99285-25; J1200; J2405; J2765; J3010; J7030